=== PATIENT | female | born 1985 | race African-American/Black ===

== ENCOUNTER 2017-01-25 18:44 | Inpatient (IN) | payer BC ==
[~2017-01-25] VITALS: Ht 175.3 cm; Wt 128.3 kg
[2017-01-25] MEDS ORDERED: ENOXAPARIN SOD 100 MG/1 ML SYRINGE SC ONE (19:45)
[2017-01-25] MEDS ORDERED: ONDANSETRON HCL 4 MG/2 ML VIAL IV ONE (19:45)
[2017-01-25] MEDS ORDERED: MORPHINE SULFATE 4 MG/ML SYRG IV ONE (19:45)
[2017-01-25 20:26] LABS: Basophils # (auto) 0.1 uL; Basophils % (auto) 0.6 % (0.0-2.0); CONDITION Y; Eosinophils # (auto) 0.1 uL; Eosinophils % (auto) 1.6 % (0.0-7.0); Hematocrit 39.6 % (36.0-46.0); Hemoglobin 13.1 g/dL (12.2-16.2); Lymphocytes # (auto) 3.7 uL; Lymphocytes % (auto) 42.6 % (10.0-50.0); Mean Corpuscular Hemoglobin 29.6 pg (28.0-32.0); Mean Corpuscular Hgb Conc. 33.1 g/dL (32.0-36.0); Mean Corpuscular Volume 89.6 fL (80.0-100.0); Monocytes # (auto) 0.8 uL; Monocytes % (auto) 9.5 % (0.0-12.0); Neutrophils % (auto) 45.7 % (37.0-80.0); Platelet Count (auto) 244 10^3/uL (140-450); Red Cell Distribution Width 14.8 % (11.6-16.0); White Blood Cell 8.7 10^3/uL (4.4-10.8)
[2017-01-25 20:48] LABS: Albumin 4.2 g/dL (3.4-5.0); Calcium 8.9 mg/dL (8.5-10.1); Magnesium 2.3 mg/dL (1.6-2.6); Potassium 3.8 mmol/L (3.5-5.1)
[2017-01-25 20:51] LABS: BUN/Creatinine Ratio 18.3
[2017-01-25 20:53] LABS: Bilirubin, Total 0.1 mg/dL (0.2-1.0); INR 0.98 (0.9-1.15); Partial Thromboplastin Time 27.1 sec (22.64-33.71); Prothrombin Time 10.7 sec (9.37-12.3); Total Protein 8.6 g/dL (6.4-8.2)
[2017-01-25] MEDS ORDERED: ONDANSETRON HCL 4 MG/2 ML VIAL IV PRN (22:30)
[2017-01-25] MEDS ORDERED: HYDROcodone-ACET 5/325MG TAB PO PRN (22:30)
[2017-01-25] MEDS ORDERED: KETOROLAC TROMETH 30 MG/ML 1ML VIAL IV PRN (22:30)
[2017-01-25] MEDS ORDERED: ACETAMINOPHEN 325 MG TAB PO PRN (22:30)
[2017-01-25] MEDS ORDERED: TEMAZEPAM 15 MG CAP PO PRN (22:30)
[2017-01-25 23:30] VITALS: BP 164/96
[2017-01-26] VITALS (7 sets, daily range): BP systolic 124–132; BP diastolic 58–82
[2017-01-26 05:51] LABS: Basophils # (auto) 0 uL; Basophils % (auto) 0.4 % (0.0-2.0); CONDITION Y; Eosinophils # (auto) 0.1 uL; Eosinophils % (auto) 1.7 % (0.0-7.0); Hematocrit 33.2 % (36.0-46.0); Hemoglobin 11.4 g/dL (12.2-16.2); Lymphocytes # (auto) 4.5 uL; Lymphocytes % (auto) 53.1 % (10.0-50.0); Mean Corpuscular Hgb Conc. 34.5 g/dL (32.0-36.0); Mean Corpuscular Volume 89.9 fL (80.0-100.0); Mean Platelet Volume 9.8 fL (7.4-10.4); Monocytes # (auto) 0.8 uL; Monocytes % (auto) 9.5 % (0.0-12.0); Neutrophils % (auto) 35.3 % (37.0-80.0); Platelet Count (auto) 207 10^3/uL (140-450); Red Cell Distribution Width 14.6 % (11.6-16.0); White Blood Cell 8.5 10^3/uL (4.4-10.8)
[2017-01-26 06:30] LABS: Albumin 3.3 g/dL (3.4-5.0); BUN/Creatinine Ratio 17.3; Bilirubin, Total 0.2 mg/dL (0.2-1.0); Calcium 8.1 mg/dL (8.5-10.1); Potassium 3.9 mmol/L (3.5-5.1); Total Protein 6.7 g/dL (6.4-8.2)
[2017-01-26] MEDS ORDERED: ENOXAPARIN SOD 100 MG/1 ML SYRINGE SC SCH (10:00)
[2017-01-26] MEDS ORDERED: ENOXAPARIN SOD 120 MG/0.8 ML SYRINGE SC SCH (10:00)
[2017-01-26] MEDS: FAMOTIDINE 20 MG TAB PO SCH ×2 (10:33→22:08)
[2017-01-26] MEDS: APIXABAN 5 MG TAB PO SCH (22:07)
[2017-01-27 05:00] VITALS: BP 125/60
[2017-01-27 08:54] VITALS: BP 136/74
[2017-01-27] MEDS: FAMOTIDINE 20 MG TAB PO SCH (09:57)
[2017-01-27] MEDS: APIXABAN 5 MG TAB PO SCH (09:57)
[2017-01-27] MEDS ORDERED: APIX5TAB PO (12:59)
[2017-01-27 13:00] VITALS: BP 128/71
[2017-01-27 13:08] VITALS: BP 128/71
[2017-02-02] MEDS ORDERED: APIXABAN 5 MG TAB PO SCH (22:00)
== END 2017-01-27 15:32 | disposition home or self-care (01) | DRG 300 ==
LOC: ER 18:47 → OVERFLOW 18:48 → EAST 23:12
PROVIDERS: ADMIT Internal Medicine; ATTEND Nurse Practitioner Acute Care
DX: I82.432 Acute embolism and thrombosis of left popliteal vein (principal); Z68.41 Body mass index [BMI] 40.0-44.9, adult; E66.9 Obesity, unspecified; S80.10XA Contusion of unspecified lower leg, initial encounter
CPT/HCPCS: 36415; 73590; 80053; 83735; 85025; 85379; 85610; 85730; 93971; 94761; 96372; 96374; 96375; J2405